=== PATIENT | male | born 1985 | race Caucasian/White ===

== ENCOUNTER → 2020-04-13 | Outpatient (CLI) | payer MEDICAID ==
--- NOTE | 2020-04-13 12:03 | Diagnostic Imaging Report ---
INDICATION: Injured right shoulder approximately one year ago with recent reinjury. TECHNIQUE: Three views of the right shoulder CORRELATION STUDY: None FINDINGS: The glenohumeral and acromioclavicular alignment are maintained and unremarkable. There is no evidence for acute fracture or dislocation. The visualized soft tissues are unremarkable. IMPRESSION: 1. Negative for acute bony abnormality about the shoulder. Dictated by: Dictated on workstation # [id number]
== END ==
LOC: RAD FS 10:44
PROVIDERS: ATTEND Nurse Practitioner
DX: M25.511 Pain in right shoulder (principal)
CPT/HCPCS: 73030

== ENCOUNTER → 2020-04-20 | Outpatient (CLI) | payer MEDICAID | LOC: RAD 13:33 | PROVIDERS: ATTEND Nurse Practitioner | DX: S43.431A Superior glenoid labrum lesion of right shoulder, initial encounter (principal) ==

== ENCOUNTER 2020-06-20 23:15 | Emergency (ER) | payer OTHER, MEDICAID ==
[~2020-06-20] VITALS: Ht 172.7 cm; Wt 122.5 kg
[2020-06-20 23:20] VITALS: BP 142/89
--- NOTE | 2020-06-20 23:36 | ED Cough/URI ---
General Chief Complaint: Fever-Adult/Adol Stated Complaint: SUSPECTED CORONAVIRUS PATIENT Nursing Triage Note: PT AMBULATE TO ROOM FS05 WITH DEX VEGA'S DEPUTY WITH C/O FEVER. NO C/O SOA/CHEST PAIN. Sepsis Screen: Possible Severe Sepsis Risk Source: patient, police Exam Limitations: no limitations History of Present Illness Date Seen by Provider: Jun 20, 2020 Time Seen by Provider: 23:31 Initial Comments 35-year-old male presents under police custody for medical screening prior to incarceration. Patient states that his neighbor may have COVID and he thinks he may have been exposed, however there is no confirmation of this information. He denies cough, chest pain or fever, at the care home they state they did check his temperature and it was 100. Patient without complaint or other concern. Allergies and Home Medications Allergies Coded Allergies: No Known Allergies (Verified Allergy, Unknown, 06/20/20) Patient Home Medication List Home Medication List Reviewed: Yes Review of Systems Review of Systems Constitutional: see HPI; No fever, No malaise, No weakness EENTM: no symptoms reported Respiratory: no symptoms reported Cardiovascular: No chest pain, No edema, No palpitations Gastrointestinal: No abdominal pain, No loss of appetite, No nausea, No vomiting Musculoskeletal: No back pain, No joint pain, No neck pain Skin: No change in color, No rash Past Oasdmoe-Garkuo-Jzxble Hx Past Med/Social Hx: Reviewed Nursing Past Med/Soc Hx Patient Social History Alcohol Use: Regular Use Alcohol Beverage of Choice: Vodka Recreational Drug Use: No Smoking Status: Current Everyday Smoker Type Used: Cigars 2nd Hand Smoke Exposure: Yes Recent Foreign Travel: No Contact w/Someone Who Travel: No Recent Infectious Disease Expo: No Recent Hopitalizations: No Physical Abuse: No Sexual Abuse: No Mistreated: No Fear: No Seasonal Allergies Seasonal Allergies: Yes Past Medical History Surgeries: No Respiratory: No Cardiac: No Neurological: No Genitourinary: No Gastrointestinal: No Musculoskeletal: No Endocrine: No HEENT: No Cancer: No Psychosocial: No Integumentary: No Blood Disorders: No Physical Exam Vital Signs - First Documented 06/20/20 23:20 Temp 38.4 Pulse 128 Resp 18 B/P (MAP) 142/89 (106) O2 Delivery Room Air Capillary Refill : Less Than 3 Seconds Height: '" Weight: lbs. oz. kg; 41.00 BMI Method: General Appearance: WD/WN, no apparent distress Neurologic/Psychiatric: alert, normal mood/affect, oriented x 3 Progress/Results/Core Measures Suspected Sepsis Recent Fever Within 48 Hours: Yes Infection Criteria Present: Suspected New Infection New/Unexplained Altered Menta: No Sepsis Screen: Possible Severe Sepsis Risk SIRS Temperature: Pulse: 128 Respiratory Rate: 18 Blood Pressure 142 /89 Mean: 106 Results/Orders My Orders Orders - VITO DESHPANDE DO Coronavirus Sars-Cov-2 So 2018 (06/20/20 23:28) Vital Signs/I&O 06/20/20 23:20 Temp 38.4 Pulse 128 Resp 18 B/P (MAP) 142/89 (106) O2 Delivery Room Air Capillary Refill : Less Than 3 Seconds Blood Pressure Mean: 106 Departure Impression Primary Impression: Medical clearance for incarceration Disposition: 21 DIS/[address]/LAW [employer]NF[employer]CE Condition: Stable Departure-Patient Inst. Decision time for Depature: 23:35 Referrals: [facility] (PCP) Primary Care Physician VITOR MALAGON APRN (Family) Primary Care Physician Add. Discharge Instructions: Patient is medically cleared for incarceration if able to keep in an isolated location due to screening for COVID-19. Patient is asymptomatic without significant risk, however states his neighbor may have COVID and thus he was screened tonight. Results pending 2-3 days, will call with results. Disposition per law enforcement. All discharge instructions reviewed with patient and/or family. Voiced understanding. VITO DESHPANDE DO Jun 20, 2020 23:36
--- OUTSIDE RECORDS SUMMARY | 2020-06-20 23:46 | XMS REPORT | Continuity of Care Document ---
Demographics Preferred Language Unknown Marital Status Unknown Hindu Affiliation Unknown Race Unknown Ethnic Group Unknown Author Organization Unknown Address Unknown Phone Unavailable Allergies There is no data. Medications There is no data. Problems Date Dx Coded Attending Type Code Diagnosis Diagnosed By 04/14/2020 JASKARAN ADORNO Ot M25.511 PAIN IN RIGHT SHOULDER 04/16/2020 JASKARAN ADORNO Ot M25.511 PAIN IN RIGHT SHOULDER Procedures There is no data. Results Test Result Range CBC - 04/11/20 12:28 WHITE BLOOD CELL COUNT 9.1 Thousand/uL 3 .8-10.8 RED BLOOD CELL COUNT 5.67 Million/uL 4.2 0-5.80 HEMOGLOBIN 17.6 g/dL 13.2-17.1 HEMATOCRIT 52.1 % 38.5-50.0 MCV 91.9 fL 80.0-100.0 MCH 31.0 pg 27.0-33.0 MCHC 33.8 g/dL 32.0-36.0 RDW 13.3 % 11.0-15.0 PLATELET COUNT 301 Thousand/uL 140-400 MPV 10.9 fL 7.5-12.5 ABSOLUTE NEUTROPHILS 6234 cells/uL 1500- 7800 ABSOLUTE LYMPHOCYTES 2048 cells/uL 850-3 900 ABSOLUTE MONOCYTES 655 cells/uL 200-950 ABSOLUTE EOSINOPHILS 100 cells/uL 15-500 ABSOLUTE BASOPHILS 64 cells/uL 0-200 NEUTROPHILS 68.5 % NRG LYMPHOCYTES 22.5 % NRG MONOCYTES 7.2 % NRG EOSINOPHILS 1.1 % NRG BASOPHILS 0.7 % NRG Encounters ACCT No. Visit Date/Time Discharge Status Pt. Type Provider Facility Loc./Unit Complaint [id number] 04/11/2020 10:20:00 Document Registration [id number] 04/20/2020 13:33:00 23:59:59 CLS Outpatient JASAKRAN ADORNO Via [facility] RAD SUPERIOR GLENOID LABRUM LESION RIGHT [id number] 04/13/2020 10:44:00 23:59:59 CLS Outpatient JASKARAN ADORNO [facility] RAD FS RT SHOULDER PAIN
== END 2020-06-20 23:52 ==
LOC: EDUNIT# 23:15 → ER FS 23:18
DX: Z20.828 Contact with and (suspected) exposure to other viral communicable diseases (principal); F17.290 Nicotine dependence, other tobacco product, uncomplicated
CPT/HCPCS: 99283; U0002; 87635